=== PATIENT | male | born 1955 | race Caucasian/White ===

== ENCOUNTER → 2018-07-17 | Day surgery (SDC) | payer BC ==
[~2018-07-17] MED LIST: LIDOCAINE HCL 2% LOCAL INJ 5 ML SDV VIAL INJ ONE; PROPOFOL IV EMULSION 10 MG/ML 20 ML VIAL ONE; PROSTAGENIX PO; RAMIPRIL5 MG PO
[2018-07-17 10:10] VITALS: BP 135/81
--- NOTE | 2018-07-26 01:54 | Operative Report ---
DATE OF PROCEDURE: 07/17/2018 SURGEON: Tam Crews MD PROCEDURE PERFORMED: Esophagogastroduodenoscopy. PREOPERATIVE DIAGNOSES: 1. Anemia. 2. Gastroesophageal reflux disease. POSTOPERATIVE DIAGNOSES: 1. Hiatal hernia. 2. Reflux esophagitis. 3. Gastritis. PREOPERATIVE MEDICATIONS: Consisted of general anesthesia. PROCEDURE IN DETAIL: Using an [employer] video gastroscope, which was inserted into the patient's oropharynx, advanced to the hypopharynx, and down to the esophagus. The mucosa present throughout the esophagus was normal. There was evidence of hiatal hernia sliding type from 39 to 40 cm. The stomach was entered and insufflated with air. The mucosa spreading the cardia, fundus, body, and antrum was viewed. , but no evidence of any ulcerations. The motility was normal. The pylorus was visualized and entered. The duodenal bulb and the postbulbar duodenum were found to be within normal limits. The endoscope was then withdrawn back up into the stomach, retroflexed . Again, gastritis was seen. Biopsies were obtained in the antrum and the fundus looking for the H. pylori infection. The gastroscope was then withdrawn back up into the esophagus, hypopharynx, oropharynx, and out of the patient's mouth and the procedure was ended. In completion, there were findings of gastritis and a hiatal hernia with a reflux esophagitis. PLAN: Plan is to stay on Prevacid 30 mg once daily, bland diet, and to follow up in the office in 10 days. Tam Crews MD SAF/MODL /[id number]
== END | disposition home or self-care (01) ==
LOC: OR 06:42
PROVIDERS: ATTEND Internal Medicine Gastroenterology
DX: K21.0 Gastro-esophageal reflux disease with esophagitis (principal); K29.70 Gastritis, unspecified, without bleeding; K44.9 Diaphragmatic hernia without obstruction or gangrene; N40.0 Benign prostatic hyperplasia without lower urinary tract symptoms; I10 Essential (primary) hypertension; D50.9 Iron deficiency anemia, unspecified; R74.0 Nonspecific elevation of levels of transaminase and lactic acid dehydrogenase [LDH]; Z01.810 Encounter for preprocedural cardiovascular examination; Z68.33 Body mass index [BMI] 33.0-33.9, adult
CPT/HCPCS: 43239; 93005; J2001; J2704